=== PATIENT | male | born 1975 | race Caucasian/White ===

== ENCOUNTER 2019-07-20 10:32 | Day surgery (SDC) | payer SELFPAY ==
--- NOTE | 2019-07-20 12:15 | NUR ---
PT ARRIVED TO ROOM 233 DIRECT ADMIT FROM URGENT CARE PT JUST CAME OVER FOR ABD CT POS FOR ACUTE APPY PT REPORTS SEVER ABD PAIN 7-05/05 PT DENIES NAUSEA AT THIS TIME RLQTHAT RADIATES TO THE GROIN STATED PAIN STARTED YESTERDAY THOUGHT IT MIGHT HAVE BEEN A SBO TOOK SOME MED AND HAD LOOS BM YESTERDAY WAS UNABLE TO SLEEP STOOD UP MOST OF THE NIGHT
[2019-07-20] MEDS ORDERED: AMOCLA875 PO ×2 (13:22)
[2019-07-20] MEDS ORDERED: Bactrim Ds Tab1 EACH PO ×2 (13:23)
--- NOTE | 2019-07-20 13:35 | NUR ---
ABX INFUSING MEDS GIVEN EARLIER FEELING BETTER PAIN -04/04
--- NOTE | 2019-07-20 16:40 | NUR ---
DR ABBASI BY TO SEE PT
--- NOTE | 2019-07-20 17:40 | NUR ---
PT STATED PAIN IS NOT IMPROVING WITH THE 5 MG DOSE REQ SECOND DOSE OF MED ALOS WAS ABLE TO VOID
--- NOTE | 2019-07-20 19:21 | NUR ---
MEDS GIVEN PT AWAITING OR
--- NOTE | 2019-07-20 20:18 | NUR ---
PT PICKED UP BY MARCIA RAMSAY FROM THE OR [facility] FOR SURGERY.
--- NOTE | 2019-07-20 22:50 | NUR ---
JOY RETURNED FROM SURGERY AWAKE, ALERT, AND ORIENTED. HE WAS ABLE TO STAND AND TRANSFER TO HIS BED. THREE LAPAROSCOPIC SITES ON HIS ABDOMEN WITH INTACT DRESSINGS. MYRTLE DRAIN DRAINING SEROSANGEINOUS FLUID. LCTAB. HRR. VSS.
--- NOTE | 2019-07-21 06:20 | NUR ---
SHIFT SUMMARY: JOY HAD HIS APPENDIX REMOVED LAST NIGHT. HE RETURNED TO THE FLOOR WITH A MYRTLE DRAIN IN THE LEFT LOWER QUADRANT. HE REPORTS THAT THE TORADOL BROUGHT HIS PAIN DOWN TO 0/10. LAP SITES ARE INTACT, DRAINAGE UNCHANGED SINCE RETURN TO THE FLOOR. HE HAS BEEN UP TO THE BATHROOM WITH STANDBY ASSIST ONLY, NO DIZZINESS OR LIGHTHEADEDNESS REPORTED. PAS IN PLACE. PT LYING IN BED WITH HIS CALL LIGHT IN REACH. HE IS ABLE TO MAKE HIS NEEDS KNOWN.
--- NOTE | 2019-07-21 18:10 | NUR ---
SHIFT SUMMARY PT HAS BEEN WALKING THE HALLWAY TODAY IND. REPORTED MINIMAL DISCOMFORT BUT DID NOT WANT ANYTHING FOR PAIN. NO N/V TODAY. CLEAR LIQUID DIET CAN BE ADVANCED TOLERATED PER DR ABBASI. PT DID HAVE SOME FOOD FOR LUNCH AND A SM AMT FOR DINNER. PT VOIDING. PT A/OX4, ASSISTED WITH ADL'S PRN. PT HAD SHOWER TODAY.
[2019-07-22 03:50] LABS: BASOPHILS ABSOLUTE AUTO 0.01 K/mm3 (0.00-0.23); BASOPHILS PERCENT AUTO 0 % (0-2); EOSINOPHILS ABSOLUTE AUTO 0.09 K/mm3 (0.00-0.68); EOSINOPHILS PERCENT AUTO 1 % (0-6); Hematocrit 35.5 % (37.0-53.0); Hemoglobin 11.7 g/dL (13.5-17.5); IMMATURE GRAN ABSOLUTE AUTO 0.04 K/mm3 (0.00-0.10); IMMATURE GRAN PERCENT AUTO 0 % (0-1); LYMPHOCYTES ABSOLUTE AUTO 2.34 K/mm3 (0.84-5.20); LYMPHOCYTES PERCENT AUTO 26 % (21-46); MONOCYTES ABSOLUTE AUTO 0.63 K/mm3 (0.16-1.47); MONOCYTES PERCENT AUTO 7 % (4-13); Mean Corpuscular HGB 29.9 pg (26.0-34.0); Mean Corpuscular Volume 91 fL (80-100); Mean Platelet Volume 10.3 fL (9.1-12.4); NEUTROPHILS ABSOLUTE AUTO 5.94 K/mm3 (1.96-9.15); NEUTROPHILS PERCENT AUTO 66 % (41-73); Platelet Count 151 K/mm3 (150-400); RDW Coefficient Variation 12.1 % (11.7-14.2); RDW Standard Deviation 40.6 fL (35.1-46.3); Red Blood Cell Count 3.91 M/mm3 (4.30-5.90); White Blood Cell Count 9.05 K/mm3 (4.00-11.30)
[2019-07-22 04:07] LABS: Anion Gap 4 mmol/L (6-16); Blood Urea Nitrogen 12 mg/dL (8-24); Bun/Creatinine Ratio 15.2 (12.0-20.0); CO2, Blood 28 mmol/L (21-32); Chloride, Blood 107 mmol/L (98-108); Creatinine, Blood 0.79 mg/dL (0.60-1.20); Glomerular Filtration Rate >60 (60-); Glucose, Blood 98 mg/dL (70-99); Potassium, Blood 3.7 mmol/L (3.5-5.5); Sodium, Blood 139 mmol/L (136-145)
--- NOTE | 2019-07-22 07:26 | NUR ---
SHIFT SUMMARY PT POD#2. AAOX4. DISCOMFORT AT TOLERABLE LEVEL T/O NIGHT. ABD INCISION WITH GAUZE SCANT DRY DRAINAGE NOTED, NO INCREASE THIS SHIFT. MYRTLE WITH SMALL AMOUNT SS OUT. PT INDEPENDENT IN ROOM + AMBULATED IN HALLS WELL THIS SHIFT MULTIPLE TIMES. MODERATE AMOUNT FLATUS THIS SHIFT, NO BM POST OP. CONTINUE TO ENCOURAGE AMBULATION TODAY. IVF CONTINUED PER ORDERS. PT RESTING AT THIS TIME WITH CALL LIGHT IN REACH.
--- NOTE | 2019-07-22 09:35 | NUR ---
DR ABBASI HERE TO SEE PT. REMOVED MYRTLE DRAIN AT THIS TIME.
--- NOTE | 2019-07-22 10:56 | NUR ---
DISCHARGE NOTE DC INSTRUCTIONS GIVEN TO PT BY RN. HARD SCRIPT SENT TO [facility] PER PT REQUEST. PRINTED INSTRUCTIONS GIVEN TO PT. PERSONAL BELONGINGS SENT WITH PT. PT TOLERATING FOOD AND PO FLUIDS, VOIDING, PASSING GAS. EXTRA DRESSING SUPPLIES SENT WITH PT. REPORTS NO FURTHER QUESTIONS OR CONCERNS. IV DC'D WNL, NO OTHER IV'S IN PLACE. AMBULATING IND WITH VERY MINIMAL DISCOMFORT.
== END 2019-07-22 11:20 | disposition home or self-care (01) ==
LOC: ORSCMMR 10:32 → ORD 10:32 → SURS 11:53 → ORD 15:15
PROVIDERS: Surgery
PROC: 0DTJ4ZZ Resection of Appendix, Percutaneous Endoscopic Approach (ICD-10-PCS; principal; 2019-07-20 14:30)
DX: K35.891 Other acute appendicitis without perforation, with gangrene (principal); F17.220 Nicotine dependence, chewing tobacco, uncomplicated
CPT/HCPCS: 36415; 80048; 85025; 88304; J1100; J1885; J2250; J2270; J2370; J2405; J2543; J2704; J2710; J3010; J7120

== ENCOUNTER → 2019-07-20 | Outpatient (CLI) | payer SELFPAY ==
[~2019-07-20] MED LIST: AMOCLA875 PO; Bactrim Ds Tab1 EACH PO
[2019-07-20 08:56] LABS: BASOPHILS ABSOLUTE AUTO 0.03 K/mm3 (0.00-0.23); BASOPHILS PERCENT AUTO 0 % (0-2); EOSINOPHILS ABSOLUTE AUTO 0.08 K/mm3 (0.00-0.68); EOSINOPHILS PERCENT AUTO 1 % (0-6); Hematocrit 47.5 % (37.0-53.0); Hemoglobin 16.1 g/dL (13.5-17.5); IMMATURE GRAN ABSOLUTE AUTO 0.03 K/mm3 (0.00-0.10); IMMATURE GRAN PERCENT AUTO 0 % (0-1); LYMPHOCYTES ABSOLUTE AUTO 2.54 K/mm3 (0.84-5.20); LYMPHOCYTES PERCENT AUTO 18 % (21-46); MONOCYTES PERCENT AUTO 10 % (4-13); Mean Corpuscular HGB 29.5 pg (26.0-34.0); Mean Corpuscular HGB Conc 33.9 g/dL (31.5-36.5); Mean Corpuscular Volume 87 fL (80-100); NEUTROPHILS ABSOLUTE AUTO 10.07 K/mm3 (1.96-9.15); NEUTROPHILS PERCENT AUTO 71 % (41-73); Platelet Count 248 K/mm3 (150-400); RDW Standard Deviation 38.1 fL (35.1-46.3); Red Blood Cell Count 5.46 M/mm3 (4.30-5.90); White Blood Cell Count 14.15 K/mm3 (4.00-11.30)
[2019-07-20 09:14] LABS: Alanine Aminotransfer (ALT/SGP 28 U/L (12-78); Albumin/Globulin Ratio 1.1 (0.8-1.8); Alk Phos 71 U/L (50-136); Anion Gap 6 mmol/L (6-16); Aspartate Aminotrans (AST/SGOT 18 U/L (12-37); Bilirubin, Total 1.3 mg/dL (0.1-1.0); Blood Urea Nitrogen 10 mg/dL (8-24); Bun/Creatinine Ratio 11.9 (12.0-20.0); CO2, Blood 28 mmol/L (21-32); Chloride, Blood 103 mmol/L (98-108); Creatinine, Blood 0.84 mg/dL (0.60-1.20); Globulin, Blood 3.8 g/dL (2.2-4.0); Glomerular Filtration Rate >60 (60-); Glucose, Blood 115 mg/dL (70-99); Sodium, Blood 137 mmol/L (136-145); Total Protein, Blood 7.8 g/dL (6.4-8.2)
== END ==
LOC: LAB SHORT 08:30 → LAB 08:30
PROVIDERS: Nurse Practitioner
DX: R10.84 Generalized abdominal pain (principal)
CPT/HCPCS: 80053; 85025